=== PATIENT | female | born 1950 | race Caucasian/White ===

== ENCOUNTER 2016-10-29 05:43 | Day surgery (SDC) | payer MEDICARE, OTHER ==
[~2016-10-29] VITALS: Ht 162.6 cm; Wt 74.7 kg
[2016-10-29] VITALS (9 sets, daily range): BP systolic 109–132; BP diastolic 58–74; PULSE 64–69; RESP 11–20; O2SAT 94–100
[~2016-10-29 05:43] MED LIST: ALBU8.5H2 INHALATION; ASPI-973 PO; ATEN50TA PO; BENZ-12 PO; CYCL1DRO AFFECT_EYE; FEXO180T85 PO; FLUT9.9S NS; HYOS0.1281 SL; METF500T4 PO; OLP.1OP5 AFFECT_EYE; POLY10DR3 AFFECT_EYE; TRIA1CAP5 PO; VALA500T2 PO
[2016-10-29] MEDS ORDERED: Succinylcholine Chloride 20 mg/mL 5 mL Inj ONE (05:44)
[2016-10-29] MEDS ORDERED: EPHEDrine/NS 5 mg/mL 5 mL Syringe ONE (05:44)
[2016-10-29] MEDS ORDERED: Phenylephrine 10,000 mCg/mL Inj ONE (05:44)
[2016-10-29] MEDS ORDERED: Ondansetron 2 mg/mL 2 mL Inj ONE (05:44)
[2016-10-29] MEDS ORDERED: fentaNYL-PF 50 mCg/mL 2 mL Inj ONE (05:44)
[2016-10-29] MEDS ORDERED: Lidocaine PF 1% 30 mL Inj ONE (05:44)
[2016-10-29] MEDS ORDERED: Dexamethasone 4 mg/mL Inj ONE (05:44)
[2016-10-29] MEDS ORDERED: Phenylephrine/NS 100 mCg/mL 10 mL Syringe IVPUSH ONE (05:44)
[2016-10-29] MEDS ORDERED: Propofol 10,000 mCg/mL 20 mL Inj ONE (05:44)
[2016-10-29] MEDS ORDERED: Clindamycin Inj 600 MG in IV Premix 1 EACH IV ONE (06:00)
[2016-10-29] MEDS: Lactated Ringer's 1,000 ML IV SCH ×2 (06:22→07:15)
[2016-10-29] MEDS ORDERED: Labetalol 5 mg/mL 4 mL Inj IV PRN (07:00)
[2016-10-29] MEDS ORDERED: Ondansetron 2 mg/mL 2 mL Inj IVPUSH PRN (07:00)
[2016-10-29] MEDS ORDERED: EPHEDrine Sulfate 50 mg/mL Inj IVPUSH PRN (07:00)
[2016-10-29] MEDS ORDERED: hydrALAZINE 20 mg/mL Inj IVPUSH PRN (07:00)
[2016-10-29] MEDS ORDERED: MetoCLOpramide 5 mg/mL 2 mL Inj IVPUSH PRN (07:00)
[2016-10-29] MEDS ORDERED: Dexamethasone 4 mg/mL Inj IVPUSH PRN (07:00)
[2016-10-29] MEDS ORDERED: fentaNYL-PF 50 mCg/mL 2 mL Inj IVPUSH PRN (07:00)
[2016-10-29] MEDS ORDERED: Lactated Ringer's 500 ML IV PRN (07:00)
[2016-10-29] MEDS ORDERED: Atropine 0.4 mg/mL Inj IVPUSH PRN (07:00)
[2016-10-29] MEDS ORDERED: HYDROmorphone 1 mg/mL Inj IVPUSH PRN (07:00)
[2016-10-29] MEDS ORDERED: Lactated Ringer's 1,000 ML IV SCH (07:00)
[2016-10-29] MEDS ORDERED: Phenylephrine 10,000 mCg/mL Inj IVPUSH PRN (07:00)
--- NOTE | 2016-10-29 07:00 | PCM.HPANE ---
Patient Data Date of Service: Oct 29, 2016 Surgeon Admitting Provider: Attending Provider:Evaristo Chang MD Primary Care Physician:Raheel Fermin MD Other Provider:Suzette Luna Anesthesia Reason for Visit Left Inguinal Hernia Ht/WT & BMI Height (Feet): 5 Height (Inches): 4 Weight (Kilograms): 74.7 Body Mass Index 28.00 Allergies Coded Allergies: Penicillins (Verified Allergy, Severe, RASH, HIVES, 10/27/16) Sulfa (Sulfonamide Antibiotics) (Verified Adverse Reaction, Severe, N&V, ) lisinopril (Verified Adverse Reaction, Severe, COUGH, 10/27/16) Past Anesthesia History Anesthesia History: Denies:: Anesthesia Reactions, Malignant Hyperthermia Diabetes History Hx Diabetes?: Yes Type of Diabetes: Type II Glycemic Control: Oral Medication Current Bedside Blood Glucose: 139 MRSA MRSA: No Medications Blood Thinner: Aspirin Hypertension Medication: Yes (TRIAMTERENE/HCTZ) Home Meds Incl Beta Seth: Yes Date Beta Seth Taken: Oct 29, 2016 Time Beta Seth Taken: 414 Reported Medications Aspirin 81 Mg [id number] Mg PO DAILY Ref 0 10/27/16 Valacyclovir HCl (Valtrex)500 Mg [id number] Mg PO BID PRN PRN 30 Days X 3 DAYS 10/27/16 Triamterene/HCTZ 37.5-25 mg 1 Each Capsule0.5 Capsule PO DAILY Ref 0 10/27/16 Benzonatate (Tessalon Perle)100 Mg [id number] Mg PO TID PRN For Cough 10/27/16 Cyclosporine (Restasis)1 Each Droperette2 Each AFFECT_EYE BID 10/27/16 Olopatadine (Patanol)5 Ml Soln1-2 Gtts AFFECT_EYE BID 10/27/16 Metformin 500 Mg [id number] Mg PO BID Ref 0 10/27/16 Hyoscyamine SL (Levsin SL)0.125 Mg Tab.subl0.125 Mg SL Q6H PRN PRN 10/27/16 Fluticasone Propionate (Flonase Allergy Relief)50 Mcg/Actuation [place].susp9.9 Ml NS DAILY 10/27/16 Atenolol 50 Mg Vvtbti27 Mg PO DAILY #30 TABLET Ref 0 10/27/16 Fexofenadine ([place]ida Allergy)180 Mg Odwzdf126 Mg PO DAILY PRN PRN Ref 0 10/27/16 Albuterol HFA (Proair HFA)8.5 Gm Hfa.aer.ad2 Puffs INHALATION Q4H PRN PRN #1 INHALER 10/27/16 Discontinued Reported Medications Polymyxin B Sulf/Trimethoprim (Polymyxin B-Tmp Eye Drops)10 Ml Drops1-2 Gtts AFFECT_EYE Q6H 10/27/16 History History of ENT Problems?: Yes HEENT History: Positive for:: Cataracts Sinus Problem (ENVIRONMENTAL ALLERGIES) Denture Type: None Teeth Condition: Within Normal Limits Hx of Heart Problems?: Yes Cardiovascular History: Positive for:: Hypertension (HYPERLIPIDEMIA) Denies:: Heart Murmur Hx of Respiratory Problem?: Yes Respiratory History: Positive for:: Asthma (seasonal) Use of Inhalers / NEBS Denies:: Chest Surgery (HX PULMONARY NODULE) Use of C-PAP Machine Hx Neurologic Problems?: Yes Other Neurological Pertinent: HX HSV Hx of GI Problems?: Yes Gastrointestinal History: Positive for:: Gastroesphageal Reflux Other GI Pertinent History: LT INGUINAL HERNIA=CURRENT PROBLEM Hx of Problems?: No Female Hx: Positive for:: Problems with Breasts? (S/P LT SUBAREOLAR DUCT EXCISION) Denies:: Currently Skin History: Denies:: History Skin Disorders? Pressure Ulcers Hx Musculoskeletal Problems?: Yes Musculoskeletal History: Positive for:: Musculoskeletal Trauma (C/OF LT KNEE PAIN S/P RT TOE RPR,RT KNEE SCOPE) Hx of Psycho/Social Problems?: No Hx Surgeries?: Yes (MAN,RT TOE RPR,RT KNEE SCOPE) Hx Any Other Health Problems?: Yes Other History: Denies:: Cancer Endocrine Disease Hospitalization Thyroid Disease Hx Diabetes: YesBedside Blood Glucose: 139 Hx Alcohol Use: Yes (RARELY)Hx Substance Use: No Smoking Status: Never Smoker Have You Smoked inLast 12 mo: No Stop/Bang Treated for Sleep Apnea?: No Do You Have a CPAP Machine?: No S-Snoring: Do You Snore Loudly: No T-Tired: feel tired, fatigued: No O-Obsered: Observed not breath: No P-Blood Pressure: treated: Yes B- Body Mass Index > 35 kg/m2: No A- Age over 50: Yes N- Neck Large Circumference: No G- Gender Male: No MAURO Total Score: 2 MAURO Risk Assessment: Low Risk, <3 Yes Risk Assessment Category Category 1A: Patient has history of documented sleep apnea, and HAS NOT received any narcotic, sedative or anesthesia administration during this stay. Category 1B: Patient has history of documented sleep apnea, and HAS received any narcotic , sedative or anesthesia administration during this stay Category 2: Patient has SUSPECTED Obstructive Sleep Apnea, and HAS received any narcotic , sedative or anesthesia administration during this stay. Category 3: Patient has SUSPECTED Obstructive Sleep Apnea and HAS NOT received narcotic, sedative or anesthesia administration during this stay. Category 4: Outpatient in Procedural Areas with known sleep apnea or who screen positive for High Risk via the STOP/BANG questionnaire. Exam Exam Vital Signs Vital Signs Date Time Temp Pulse Resp B/P Pulse Ox O2 Delivery O2 Flow Rate FiO2 10/29/16 06:04 36.3 64 20 129/74 97 Room Air General Appearance: Alert, Oriented X3, Cooperative HEENT/AIRWAY: MP 2, Neck Movement (Full), Mouth Opening (Wide) Lungs: Clear to Auscultation, Normal Air Movement Heart: Regular Rate/Rhythm, Normal S1, Normal S2 Meds/Labs/Diagnostics Admission Meds Current Medications Lactated Ringer's (Lr) 1,000 ml @ 120 mls/hr Q8H20M IV Last administered on t 06:22; Start 10/29/16 at 05:00; Stop 10/29/16 at 13:19 Bedside Blood Glucose: 139 Plan Impression Patient chart reviewed, patient interviewed and anesthestic plan with risks, benefits, and alternatives discussed, and informed consent obtained. NPO per Anesth. Guidelines: Yes ASA Physical Status: ASA2 Mod Systemic Disease Anesthetic Plan: GA Bene/Risks/Altern/Consents: Yes HP Complete Prior to Induction: Yes Ifeanyi Benitez MD Oct 29, 2016 06:54
[2016-10-29] MEDS ORDERED: Bupivacaine-MPF 0.25% 30 mL Inj INFILTRATE ONE (07:15)
[2016-10-29] MEDS ORDERED: oxyCODONE-Acetamin 5-325 mg Tablet PO PRN (08:10)
[2016-10-29] MEDS ORDERED: HYDROcodone-APAP 5-325 mg Tablet PO PRN (08:10)
--- NOTE | 2016-10-29 08:58 | PCM.ANEP1 ---
Post Anesthesia PACU Phase 1 Assessment Date of Service: Oct 29, 2016 Vital Signs Vital Signs Date Time Temp Pulse Resp B/P Pulse Ox O2 Delivery O2 Flow Rate FiO2 10/29/16 08:41 67 16 118/60 96 Room Air 10/29/16 08:35 36.4 66 11 109/59 95 Room Air 10/29/16 08:30 66 12 117/62 95 Room Air 10/29/16 08:25 36.5 69 14 115/58 94 Room Air 10/29/16 08:20 69 17 111/61 96 Room Air 10/29/16 08:15 65 15 112/62 100 Room Air 10/29/16 08:10 69 15 121/61 100 Simple Mask 8 10/29/16 08:05 36.7 66 15 132/68 100 Simple Mask 8 10/29/16 06:04 36.3 64 20 129/74 97 Room Air Anesthetic Administered: GA Level of Alertness: Awake, talking FAN's with Equal Strength: Yes Pain: No Nausea or Vomiting: No CV Function & Hydration Stable: Yes Airway Device: Oxygen Delivery: Room Air Lungs: Normal Air Movement PACU Phase 2 Assessment Complications: No Follow up Care: No Patient Instructions Provided: N/A Ifeanyi Benitez MD Oct 29, 2016 08:58
--- NOTE | 2016-10-29 09:14 | OP ---
[address] [address] OPERATIVE REPORT PATIENT: BUSTER JACKSON : 1950 MR#: [id number] ADMIT: 10/29/2016 JOB ID: [id number] DATE OF SURGERY: 10/29/2016 ANESTHESIA: General. PREOPERATIVE DIAGNOSIS(ES): Symptomatic left inguinal hernia. POSTOPERATIVE DIAGNOSIS(ES): Symptomatic left inguinal hernia (indirect). OPERATION: Open repair of left inguinal hernia using mesh. SURGEON: Dr. Evaristo Chang. ASSISTANTS: Beni Batista PA-C (the child welfare assistant was required for the safe and timely completion of the case). COMPLICATIONS: None. ESTIMATED BLOOD LOSS: Less than 5 mL. CONDITION: Satisfactory. SPECIMEN: None. FINDINGS: There was a large lipoma associated with the small indirect hernia. This was repaired with soft polypropylene mesh. INDICATIONS/SIGNIFICANT HISTORY: The patient is a 66-year-old female who developed a left groin lump two months ago. This has slowly increased in size and has become increasingly uncomfortable. She was referred to me, diagnosed with an inguinal hernia, and elected to undergo repair. OPERATIVE TECHNIQUE: The patient was taken to the operating room and placed in the supine position. General anesthesia was administered and perioperative antibiotics given. The groin and abdomen were prepped and draped in a standard surgical fashion and a procedural pause performed. I began by anesthetizing the area. The left inguinal incision was made and dissection carried down through skin and subcutaneous tissue. The aponeurosis of the external oblique was opened in line with the fibers to reveal the contents of the inguinal canal. I dissected around the round ligament and then isolated a large cord lipoma and small hernia and reduced both knees back into the abdomen. I then suture ligated the round ligament and transected this and removed this from the inguinal canal. The piece of soft polypropylene mesh was then trimmed to the appropriate size and secured in place with interrupted 2-0 PDS sutures. The result was a nice reinforcement of the floor with closure of the internal ring. The aponeurosis of the external oblique was then closed with a running 3-0 Vicryl. Skin was closed using 4-0 Monocryl. Dermabond was applied. The entire procedure was well tolerated without complication.
== END 2016-10-29 23:59 | disposition home or self-care (01) ==
LOC: SAS 05:43
PROVIDERS: ATTEND General Practice
DX: K40.90 Unilateral inguinal hernia, without obstruction or gangrene, not specified as recurrent (principal); D17.79 Benign lipomatous neoplasm of other sites; E11.9 Type 2 diabetes mellitus without complications; Z79.84 Long term (current) use of oral hypoglycemic drugs; I10 Essential (primary) hypertension; J45.909 Unspecified asthma, uncomplicated; Z79.52 Long term (current) use of systemic steroids
CPT/HCPCS: 49505; C1781; J0330; J1100; J2250; J2370; J2405; J3010; J7120

== ENCOUNTER 2016-12-16 09:54 | Observation (INO) | payer MEDICARE, OTHER ==
[~2016-12-16] VITALS: Ht 162.6 cm; Wt 71.6 kg
[~2016-12-16 09:54] MED LIST changes: -CYCL1DRO AFFECT_EYE; +CYCL1DRO BOTH_EYES; -POLY10DR3 AFFECT_EYE
[2016-12-16 09:56] VITALS: BP 149/88; PULSE 74; RESP 14; O2SAT 98
--- NOTE | 2016-12-16 10:20 | ED.REPORT ---
HPI-General Illness Date of Service Dec 16, 2016 ED Provider: Vasu Roper MD Patient is a 66-year-old woman with diabetes mellitus, hypertension, and acid reflux who presents to the emergency department with sudden onset deep throbbing , aching right arm pain. It is not exacerbated by movement or manipulation though she did pull herself out of the bathtub yesterday which is straining on her arm due to a wrapped right foot and compromised left knee. Early this morning patient began feeling unwell and has noticed some occasional shortness of breath with exertion recently. She will have an occasional twinge of chest pain however nothing that is reproducible, recurring, or consistent. She does have swelling of her feet in the evenings left worse than right. She wears compression stockings and does not Epsom salts bath nightly. She previously walked 3-5 miles per day however has developed left Chadwick's cyst, and torn meniscus in her left knee and plantar fasciitis which is making walking more difficult for her. She took 4 baby aspirin prior to arrival. Patient denies headache, recent vision changes, nausea, vomiting, abdominal pain, dysuria, abnormal bowel movements, melena, hematochezia Nursing Notes Stated Complaint: ARM PAIN Chief Complaint: arm pain Nursing Notes Reviewed: Yes Allergies: Coded Allergies: Penicillins (Verified Allergy, Severe, RASH, HIVES, 10/27/16) oxycodone (Verified Allergy, Severe, red face, facial swelling, 11/02/16) Sulfa (Sulfonamide Antibiotics) (Verified Adverse Reaction, Severe, N&V, ) lisinopril (Verified Adverse Reaction, Severe, COUGH, 10/27/16) Scheduled Aspirin (Aspirin) 81 Mg Tablet 81 MG PO DAILY Atenolol (Atenolol) 25 Mg Tablet 25 MG PO QAM Cyclosporine (Restasis) 1 Each Droperette 1 DROP BOTH_EYES BID Metformin (Metformin) 500 Mg Tablet 500 MG PO QAM Omeprazole (Omeprazole) 20 Mg Tablet.dr 20 MG PO BID Triamterene/HCTZ 37.5-25 mg (Triamterene/HCTZ 37.5-25 mg) 1 Each Capsule 0.5 CAPSULE PO DAILY Scheduled PRN Albuterol HFA (Proair HFA) 8.5 Gm Hfa.aer.ad 2 PUFFS INHALATION Q4H PRN PRN PRN Benzonatate (Tessalon Perle) 100 Mg Capsule 100 MG PO TID PRN PRN For Cough Fluticasone Propionate (Flonase Allergy Relief) 50 Mcg/Actuation [place].susp 1-2 SPRAYS NS DAILY PRN PRN For Congestion Valacyclovir HCl (Valtrex) 500 Mg Tablet 500 MG PO BID PRN PRN PRN X 3 DAYS General Time Seen by MD: 10:09 Chief Complaint Other (arm pain) Hx Obtained From: Patient Arrived By: Walk-in Sudden in Onset?: Yes Onset Occurred: Yesterday Past Medical History Past Medical History Diabetes mellitus type II on metformin Hypertension GERD Left knee Chadwick's cyst and torn medial and lateral meniscus Cataracts Plantar fasciitis Past Surgical History Cholecystectomy Left knee arthroscopy Right great toe surgery Left inguinal hernia repair 2 months ago Family History Father with CHF and strokes Sr. with SVT Family history of hypertension Smoking History Never Smoker Social History Alcohol Use: "Social" Drug Use: Denies drug use Other Social History: Ambulatory Status Independent Review of Systems A comprehensive review of systems was conducted with the patient and found to be negative except as above in the History of Present Illness. Physical Exam Initial VS: Reviewed, Vital signs normal (mildly hypertensive) General/Constitutional: Well-developed, Well-nourished Head / Eyes: Atraumatic, Normocephalic, PERRL ENT: Mucous membranes moist, Conjunctiva normal, No scleral icterus Neck: Supple, Non-tender, Full range of motion Respiratory: Breath sounds normal, Clear to auscultation, No respiratory distress Cardiovascular: Regular rate & rhythm, Heart sounds normal, Intact distal pulses Abdomen / GI: Soft, Non-tender, No guarding, No rebound, No distention Back: No CVA tenderness Lymphatic: No lymphadenopathy Lower Extremities: Vascular intact, Neuro intact, No swelling, No tenderness Skin: Warm, Dry, No cyanosis Neurologic: Alert, Oriented, Nonfocal Psychiatric: Mood/affect normal, Behavior normal, Normal thought content Upper Extremity / MS: Atraumatic, Inspection NL, Full range of motion, No swelling, Non-tender (to palpation), No erythema, No deformity, No edema Vital Signs Vital Signs Date Time Temp Pulse Resp B/P Pulse Ox O2 Delivery O2 Flow Rate FiO2 12/16/16 11:44 36.8 60 17 121/59 99 Room Air 12/16/16 09:56 36.7 74 14 149/88 98 Room Air Interpretation & Diagnostics Ultrasound of right upper extremity negative for deep vein thrombosis. Lab Results Interpretation Result Diagram: 12/16/16 1045 12/16/16 1045 Test 12/16/16 10:45 White Blood Count 6.0th/mm3 (3.8-10.1) Red Blood Count 4.31mil/mm3 (3.90-5.20) Hemoglobin 13.0g/dL (12.0-15.6) Hematocrit 39.0% (35.0-46.0) Mean Corpuscular Volume 90.5fL (81-100) Mean Corpuscular Hemoglobin 30.2pg (27.0-35.0) Mean Corpuscular Hemoglobin Concent 33.3% (32.0-37.0) Red Cell Distribution Width 13.1% (12.3-15.4) Platelet Count 267bil/L (150-400) Neutrophils (%) (Auto) 62.5% (40-74) Lymphocytes (%) (Auto) 22.1% (14-46) Monocytes (%) (Auto) 13.2% (4-12) Eosinophils (%) (Auto) 1.7% (0-5) Basophils (%) (Auto) 0.3% (0-3) Sodium Level 140mEq/L (134-144) Potassium Level 3.6mEq/L (3.5-5.2) Chloride Level 102mEq/L (97-108) Carbon Dioxide Level 24mmol/L (18-29) Blood Urea Nitrogen 21mg/dL (8-27) Creatinine 0.84mg/dL (0.57-1.00) Estimat Glomerular Filtration Rate 97mL/min (>59) Glucose Level 131mg/dL (60-99) Calcium Level 10.1mg/dL (8.5-10.1) Total Bilirubin 1.1mg/dL (0.0-1.2) Aspartate Amino Transf (AST/SGOT) 22U/L (0-50) Alanine Aminotransferase (ALT/SGPT) 22U/L (0-32) Alkaline Phosphatase 61U/L (25-165) Troponin T 0.010ug/L (0.0-0.011) Total Protein 7.2g/dL (6.4-8.4) Albumin 4.1g/dL (3.4-5.0) Hold Keller Top Tube Received (Received) ECG Interpretation ECG Interpretation: Sinus rhythm at a rate of 67 T waves inverted in III No previous for comparison Time: 10:13 Interpreted by: ED physician X-Ray Chest Interpretation Chest Xray Interpretation: No acute cardiopulmonary process View: AP & lat Interpretation / Wet Read by: Interpret - Radiologist Re-Eval/Medical Decision Med Decision/Clinical Course Patient is a 66-year-old woman with diabetes mellitus, hypertension, and acid reflux who presents to the emergency department with sudden onset deep throbbing , aching right arm pain. There is some concern about arm injury or strain while patient was precariously getting herself out of the bathtub yesterday evening. On exam she has no gross limitation in range of motion, no pain with movement, and no pain to palpation, or swelling. Right upper extremity ultrasound was ordered to rule out formation of DVT. This was negative. She has a HEART score of 5 making her moderate risk for acute cardiovascular event. I Wells criteria she is low risk for pulmonary embolism or DVT. Though she is not having typical chest pain she has not had a cardiac stress test in the last 10 years and her risk factors are quite high due to diabetes, hypertension , obesity, and family history of cerebral vascular disease. Time of Eval: 13:05 Patient Status: Condition unchanged Counseled Regarding: Diagnosis, Lab results, Need for admission Discharge & Departure Primary Impression: Dyspnea on exertion Additional Impressions: Arm pain Laterality: right Qualified Code: M79.601 - Pain in right arm Diabetes mellitus Diabetes mellitus type: type 2 Diabetes mellitus complication status: without complication Diabetes mellitus assisted insulin use: without online banking specialist use Qualified Code: E11.9 - Type 2 diabetes mellitus without complications Disposition: ADMITTED TO HOSPITAL Discharge Condition All VS Reviewed: Yes Condition: Stable Referrals: Raheel Fermin MD (PCP) Attending Statement I saw the patient with the resident. I have reviewed and agree with the plan and documentation as noted above. copies to: Raheel Fermin MD, William B MD Dec 16, 2016 10:20 Nancy Dowell DO Dec 16, 2016 12:48
[2016-12-16 10:57] LABS: Mean Corpuscular Hemoglobin 30.2 pg (27.0-35.0); Mean Corpuscular Volume 90.5 fL (81-100); NEUTROPHILS % (AUTO) 62.5 % (40-74); Platelet Count 267 bil/L (150-400)
[2016-12-16 10:58] LABS: BASOPHILS % (AUTO) 0.3 % (0-3); EOSINOPHILS % (AUTO) 1.7 % (0-5); MONOCYTES % (AUTO) 13.2 % (4-12)
--- NOTE | 2016-12-16 10:58 | ED.REPORT ---
HPI-Extremity Problem Upper Date of Service Dec 16, 2016 ED Provider: Vasu Roper MD Patient is a 66-year-old woman with diabetes mellitus, hypertension, and acid reflux who presents to the emergency department with sudden onset deep throbbing , aching right arm pain. It is not exacerbated by movement or manipulation though she did pull herself out of the bathtub yesterday which is straining on her arm due to a wrapped right foot and compromised left knee. Early this morning patient began feeling unwell and has noticed some occasional shortness of breath with exertion recently. She will have an occasional twinge of chest pain however nothing that is reproducible, recurring, or consistent. She does have swelling of her feet in the evenings left worse than right. She wears compression stockings and does not Epsom salts bath nightly. She previously walked 3-5 miles per day however has developed left Chadwick's cyst, and torn meniscus in her left knee and plantar fasciitis which is making walking more difficult for her. She took 4 baby aspirin prior to arrival. Patient denies headache, recent vision changes, nausea, vomiting, abdominal pain, dysuria, abnormal bowel movements, melena, hematochezia Nursing Notes Stated Complaint: ARM PAIN Chief Complaint: Arm Pain Nursing Notes Reviewed: Yes Allergies: Coded Allergies: Penicillins (Verified Allergy, Severe, RASH, HIVES, 10/27/16) oxycodone (Verified Allergy, Severe, red face, facial swelling, 11/02/16) Sulfa (Sulfonamide Antibiotics) (Verified Adverse Reaction, Severe, N&V, ) lisinopril (Verified Adverse Reaction, Severe, COUGH, 10/27/16) Scheduled Aspirin (Aspirin) 81 Mg Tablet 81 MG PO DAILY Atenolol (Atenolol) 25 Mg Tablet 25 MG PO QAM Cyclosporine (Restasis) 1 Each Droperette 1 DROP BOTH_EYES BID Metformin (Metformin) 500 Mg Tablet 500 MG PO QAM Omeprazole (Omeprazole) 20 Mg Tablet.dr 20 MG PO BID Triamterene/HCTZ 37.5-25 mg (Triamterene/HCTZ 37.5-25 mg) 1 Each Capsule 0.5 CAPSULE PO DAILY Scheduled PRN Albuterol HFA (Proair HFA) 8.5 Gm Hfa.aer.ad 2 PUFFS INHALATION Q4H PRN PRN PRN Benzonatate (Tessalon Perle) 100 Mg Capsule 100 MG PO TID PRN PRN For Cough Fluticasone Propionate (Flonase Allergy Relief) 50 Mcg/Actuation [place].susp 1-2 SPRAYS NS DAILY PRN PRN For Congestion Valacyclovir HCl (Valtrex) 500 Mg Tablet 500 MG PO BID PRN PRN PRN X 3 DAYS General Time Seen by MD: 10:15 Chief Complaint Arm injury right Hx Obtained From: Patient Arrived By: Walk-in Onset Occurred: Yesterday Past Medical History Past Medical History Diabetes mellitus type II on metformin Hypertension GERD Left knee Chadwick's cyst and torn medial and lateral meniscus Cataracts Plantar fasciitis Past Surgical History Cholecystectomy Left knee arthroscopy Right great toe surgery Left inguinal hernia repair 2 months ago Family History Father with CHF and strokes Sr. with SVT Family history of hypertension Smoking History Never Smoker Social History Alcohol Use: "Social" Drug Use: Denies drug use Other Social History: Ambulatory Status Independent Review of Systems A comprehensive review of systems was conducted with the patient and found to be negative except as above in the History of Present Illness. Physical Exam Initial Vital Signs Vital Signs (First) Date Time Temp Pulse Resp B/P Pulse Ox O2 Delivery O2 Flow Rate FiO2 12/16/16 09:56 36.7 74 14 149/88 98 Room Air Initial VS: Reviewed, Vital signs normal (mildly hypertensive) General/Constitutional: Well-developed, Well-nourished Head / Eyes: Atraumatic, Normocephalic, PERRL ENT: Mucous membranes moist, Conjunctiva normal, No scleral icterus Neck: Supple, Non-tender, Full range of motion Respiratory: Breath sounds normal, Clear to auscultation, No respiratory distress Cardiovascular: Regular rate & rhythm, Heart sounds normal, Intact distal pulses Abdomen / GI: Soft, Non-tender, No guarding, No rebound, No distention Back: No CVA tenderness Lymphatic: No lymphadenopathy Lower Extremities: Vascular intact, Neuro intact, No swelling, No tenderness Skin: Warm, Dry, No cyanosis Neurologic: Alert, Oriented, Nonfocal Psychiatric: Mood/affect normal, Behavior normal, Normal thought content Upper Extremity / MS: Atraumatic, Inspection NL, Full range of motion, No swelling, Non-tender (to palpation), No erythema, No deformity, No edema Interpretation & Diagnostics Lab Results Interpretation Result Diagram: 12/17/16 0511 12/17/16 0511 Test 12/16/16 01:30 12/16/16 10:45 Hemoglobin A1c 5.8% (4.8-5.6) Hold Keller Top Tube Received (Received) ECG Interpretation ECG Interpretation: Sinus rhythm at a rate of 67 T waves inverted in III Time: 10:13 Interpreted by: ED physician Discharge & Departure Referrals: Raheel Fermin MD (PCP) Nancy Dowell DO Dec 16, 2016 10:10
[2016-12-16 11:19] LABS: TROPONIN T 0.01 ug/L (0.0-0.011)
[2016-12-16 11:44] VITALS: BP 121/59; PULSE 60; RESP 17; O2SAT 99
--- NOTE | 2016-12-16 11:46 | DRSVH ---
PROCEDURE: X-RAY CHEST, TWO VIEWS ([id number]) INDICATIONS: Arm pain TECHNIQUE: 2 views of the chest were acquired. COMPARISON: [facility], CR, CHEST 2VW, 07/20/2011, 21:51. FINDINGS: Surgical changes and devices: None. Lungs and pleura: No pleural effusions or pneumothorax. Lungs are clear. Mediastinum: Mediastinal contours are normal. Heart size is normal. Bones and chest wall: No suspicious bony abnormalities. Soft tissues appear unremarkable. IMPRESSION: No acute cardiopulmonary disease. Dictated by: Sanam Marks M.D. on 12/16/2016 at 11:44 Approved by: Sanam Marks M.D. on 12/16/2016 at 11:44
[2016-12-16] MEDS ORDERED: OMEP20TA86 PO (13:40)
[2016-12-16] MEDS ORDERED: ATEN25TA PO (13:40)
--- NOTE | 2016-12-16 14:34 | DRSVH ---
PROCEDURE: US VENOUS ARM DUPLEX UNILATERAL, RIGHT INDICATIONS: R arm deep ache TECHNIQUE: Real-time imaging, as well as color and pulse Doppler interrogation, was performed of the right upper extremity deep veins from the inferior neck to the antecubital fossa. COMPARISON: None. FINDINGS: The internal jugular vein, visualized portions of the subclavian vein, axillary, and brach ial veins are free of intraluminal thrombus. Where physically possible, the veins are normally compr essible. Color and pulse Doppler demonstrate normal intraluminal flow, with expected phasicity and p ulsatility. Additional scanning of the cephalic and basilic veins of the superficial system demonstr ate normal compressibility, without thrombus. IMPRESSION: No acute venous thrombosis in the right upper extremity. Dictated by: Sanam Marks M.D. on 12/16/2016 at 14:32 Approved by: Sanam Marks M.D. on 12/16/2016 at 14:32
[2016-12-16 15:37] VITALS: BP 123/54; PULSE 68; RESP 16; O2SAT 98
[2016-12-16 16:18] VITALS: BP 141/85; PULSE 61; RESP 18; O2SAT 97
[2016-12-16] MEDS ORDERED: Ondansetron 2 mg/mL 2 mL Inj IVPUSH PRN (16:55)
[2016-12-16] MEDS ORDERED: Alum-Mag Hydrox-Simeth 30 mL Suspension PO PRN (16:55)
[2016-12-16] MEDS ORDERED: Polyethylene Glycol (PEG) 17 Gm Powder PO PRN (16:55)
[2016-12-16 16:56] VITALS: PULSE 60
[2016-12-16 18:26] LABS: APPEARANCE,URINE CLEAR (CLEAR,HAZY); COLOR,URINE YELLOW (YELLOW); OCCULT BLOOD,URINE NEGATIVE (NEGATIVE); PH,URINE 5.5 (5.0-8.0); UROBILINOGEN,URINE NORMAL (NORMAL)
--- NOTE | 2016-12-16 19:13 | NUR ---
Admit Patient transferred to 3015 from the ED around 1600. No c/o pain, vitals stable, ambulatory, tele: SR 70's. Family at the bedside, paged to have diet ordered, patient hadn't eaten since 1030. BG 96. Refused Lovenox. IV placed in right AC, SL. Admit completed by admit RN in ED. Oriented to room. Plan: MIBI scan in a.m., NOC RN made aware, NPO after midnight, no caffeine, Bb, etc.
[2016-12-16] MEDS: Insulin Human REGular 300 Unit/3 mL Inj SUBQ SCH (20:30)
[2016-12-16 21:36] VITALS: BP 129/71; PULSE 63; RESP 18; O2SAT 96
--- NOTE | 2016-12-16 21:51 | PCM.HPMED ---
Subjective Date of Service Dec 16, 2016 Primary Provider: Admitting Physician: Kain Castro MD Primary Care Physician: Raheel Fermin MD Attending Physician: Kain Castro MD Chief Complaint: Right arm pain History of Present Illness: The patient is a very pleasant 66-year-old white female with history of diabetes mellitus, hypertension and gastroesophageal reflux disease on omeprazole who is currently being treated for plantar fasciitis of her right lower extremity. He also suffers from a Chadwick's cyst behind the left knee along with left knee torn meniscus. Patient takes a nightly Epsom salts bath. Patient was taking a bath last evening and when she was getting out of the tub she first drained the tub and then stood up without putting much weight on her leg with a plantar fasciitis and also has a Chadwick's cyst behind her left knee. Therefore, the patient was using her arm muscles to do most of the work and getting up out of the tub. The patient felt fine afterwards however she awoke at 2:00 in the morning with a sudden onset of deep throbbing and deep aching in her right arm. 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 Soon thereafter the pain alleviated some. However, patient decided to give herself an exercise stress test instead of going to the hospital as her is sick with multiple myeloma at home. Patient decided to do jumping jacks and running in place and stated that the pain in her right arm did not get worse. However, it did not get any better. Patient eventually went back to sleep and awoke this morning feeling "horrible" she went to do her hair in her right arm was aching deep inside she could not feel any muscle aches but the pain was deep inside her arm. Patient did not experience any chills or diaphoresis or shaking. Patient did not experience any nausea, or vomiting. Her insisted that she come to the hospital and drove her to the hospital at 10 AM. The patient was evaluated in the hospital by in the emergency room at [facility] by Dr. Vasu Roper. Dr. Roper did a cardiac workup which included an EKG which shows sinus rhythm with a rate of 67 and T waves inverted in lead 3. There is no previous EKG for comparison the patient had a troponin drawn which was normal at 0.010. On exam the patient had no gross limitation range of motion, no pain with movement, no pain to palpation, no swelling. The right upper extremity ultrasound was ordered to rule out formation of a DVT and this was negative. The patient had an HEAR T score of 5 making her moderate risk for acute cardiovascular event. By Well's criteria she is low risk for pulmonary embolism or DVT. Patient had significant risk factors for cardiac disease which include diabetes, hypertension obesity and family history of cerebrovascular disease. Patient was therefore brought in under observation to the hospitalist service for further workup. Review of Systems: General: Patient has no new constitutional complaints. HEENT: Patient has no headache, patient has no diplopia, patient has no changes in vision. Patient has no problems with their ears, nose or throat. Patient has no known dental problems. Patient has no pharyngitis or history of thrush. Neck: Patient has no stiffness in the neck. Patient has no lymphadenopathy. Patient has no other problems with their neck. Pulmonary: Patient has no shortness of breath, no cough, no expectoration of sputum. Patient has no pleurisy. Patient has no chest pain. Patient has no history of asthma or COPD. Cardiovascular: Patient has no chest pain. Patient has no history of heart murmur. Patient has no palpitations. Patient has no history of myocardial infarction. Patient has no history of coronary artery disease. Patient has right arm pain and is concerned this is cardiac in origin. Gastrointestinal: Patient has no history of hepatitis A, B or C. Patient has no history of peptic ulcer disease. Patient has a history of gastroesophageal reflux disease with José's esophagus. Patient has no history of nausea, vomiting, or diarrhea. Patient has no history of hematemesis, hematochezia, or melena. Patient has no history of colitis. Renal: Patient has no history of kidney disease. No history of kidney stones. Genitourinary: Patient has no history of dysuria, frequency, or incontinence. Patient has no previous history of genitourinary problems. Musculoskeletal: Patient has plantar fasciitis on the right. She has a Chadwick's cyst in the left knee with torn menisci in the left knee. She has swelling of her left ankle at the end of the day due to the Chadwick's cyst. Neurologic: Patient has no history of stroke, no history of seizure, no history of TIA. Psychiatric: Patient has no history of psychiatric problems. The remainder of the entire review of systems was reviewed with patient and is as mentioned above otherwise negative. Allergies Coded Allergies: Penicillins (Verified Allergy, Severe, RASH, HIVES, 10/27/16) oxycodone (Verified Allergy, Severe, red face, facial swelling, 11/02/16) Sulfa (Sulfonamide Antibiotics) (Verified Adverse Reaction, Severe, N&V, ) lisinopril (Verified Adverse Reaction, Severe, COUGH, 10/27/16) Home Medications Scheduled Aspirin (Aspirin) 81 Mg Tablet 81 MG PO DAILY Atenolol (Atenolol) 25 Mg Tablet 25 MG PO QAM Cyclosporine (Restasis) 1 Each Droperette 1 DROP BOTH_EYES BID Metformin (Metformin) 500 Mg Tablet 500 MG PO QAM Omeprazole (Omeprazole) 20 Mg Tablet.dr 20 MG PO BID Triamterene/HCTZ 37.5-25 mg (Triamterene/HCTZ 37.5-25 mg) 1 Each Capsule 0.5 CAPSULE PO DAILY Scheduled PRN Albuterol HFA (Proair HFA) 8.5 Gm Hfa.aer.ad 2 PUFFS INHALATION Q4H PRN PRN PRN Benzonatate (Tessalon Perle) 100 Mg Capsule 100 MG PO TID PRN PRN For Cough Fluticasone Propionate (Flonase Allergy Relief) 50 Mcg/Actuation [place].susp 1-2 SPRAYS NS DAILY PRN PRN For Congestion Valacyclovir HCl (Valtrex) 500 Mg Tablet 500 MG PO BID PRN PRN PRN X 3 DAYS PMH Diabetes mellitus type II well controlled on metformin Hypertension GERD with José's esophagus. The patient follows with Dr. Solorio auto driver in [place]. Left knee Chadwick's cyst and torn medial and lateral meniscus Cataracts Plantar fasciitis Surgical History Cholecystectomy Left knee arthroscopy Right great toe surgery Left inguinal hernia repair 2 months ago Hollister teeth 4 removed Family History Patient's mother had hypertension, cancer liver and type I diabetes mellitus and at the age of 60. Patient's father had congestive heart failure and strokes and at the age of 80. The patient has 3 sisters who are all alive 1 has had SVT and hypertension, one has had rectal cancer treatment, one has had very bad knees. The patient has 1 brother who has hypertension Patient's had a grandfather who is had a stroke. Social History Hx Alcohol Use: Yes (RARELY) Hx Substance Use: No Hx Tobacco Use: No Smoking Status: Never Smoker Living Arrangement: with Family (the patient lives with her of 44 years.) Additional Information The patient was born in [place] and went to 13 different schools growing up as her father was in the . She went to high school in [place] [place] [employer] [facility] and graduated there. She then went to [employer] for 2 years and got an Associates degree at [employer]. She then went to [employer] for 1 year and got her bachelor's degree in nursing. 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 Currently her has multiple myeloma and had a sense ultrasound transplant and she helps take care of him at home. Patient denies tobacco use. Occasionally she will have a glass of wine maybe once per month. Vision has 4 children 2 boys and 2 girls and they are all very close. This weekend they are going to a vacation together with 19 family members in [place], [place]. Exam Vital Signs Vital Sign - Last Date Time Temp Pulse Resp B/P Pulse Ox O2 Delivery O2 Flow Rate FiO2 12/16/16 21:36 36.7 63 18 129/71 96 Room Air Exam General: The patient is in no apparent distress HEENT: Head is atraumatic and normocephalic. Eyes: Pupils are equally round and reactive to light and accommodation. Extraocular muscles are intact. Sclera are white, anicteric. Subconjunctival mucosa is pink. Ears and nose are unremarkable. Oropharynx: There is no mucosal lesions, there is no thrush, there is no pharyngitis. Neck: Is supple, there are no nodes, or masses or tenderness. Chest: Is clear to auscultation and percussion. There are no rales, rhonchi, wheezes or rubs. Heart: Rate, rhythm is regular. There is no murmur, rub or gallop. Abdomen: Good bowel sounds are present. Abdomen is soft, nontender, no organomegaly or masses were appreciated. Extremities: There is a Chadwick's cyst behind the left knee with some posterior swelling and some edema of left lower extremity towards the ankle area. The left lower extremities is well perfused. There is no Homans sign. Neurologic: There are no focal neurological deficits. Cranial nerves II through XII are intact. There are no sensory or motor deficits. Psychiatric: Patients mood is calm and shows no sign of agitation. Genital: Deferred Rectal: Deferred Lab and Diagnostics Result Diagram: 12/16/16 1045 12/16/16 1045 X-Rays, CTs and MRIs PROCEDURE: X-RAY CHEST, TWO VIEWS ([id number]) INDICATIONS: Arm pain TECHNIQUE: 2 views of the chest were acquired. COMPARISON: [facility], , CHEST 2VW, 07/20/2011, 21:51. FINDINGS: Surgical changes and devices: None. Lungs and pleura: No pleural effusions or pneumothorax. Lungs are clear. Mediastinum: Mediastinal contours are normal. Heart size is normal. Bones and chest wall: No suspicious bony abnormalities. Soft tissues appear unremarkable. IMPRESSION: No acute cardiopulmonary disease. Dictated by: Sanam Marks M.D. on 12/16/2016 at 11:44 Approved by: Sanam Marks M.D. on 12/16/2016 at 11:44 PROCEDURE: US VENOUS ARM DUPLEX UNILATERAL, RIGHT INDICATIONS: R arm deep ache TECHNIQUE: Real-time imaging, as well as color and pulse Doppler interrogation, was performed of the right upper extremity deep veins from the inferior neck to the antecubital fossa. COMPARISON: None. FINDINGS: The internal jugular vein, visualized portions of the subclavian vein , axillary, and brachial veins are free of intraluminal thrombus. Where physically possible, the veins are normally compressible. Color and pulse Doppler demonstrate normal intraluminal flow, with expected phasicity and pulsatility. Additional scanning of the cephalic and basilic veins of the superficial system demonstrate normal compressibility, without thrombus. IMPRESSION: No acute venous thrombosis in the right upper extremity. Dictated by: Sanam Marks M.D. on 12/16/2016 at 14:32 Approved by: Sanam Marks M.D. on 12/16/2016 at 14:32 Assessment & Plan The patient is a very pleasant 66-year-old white female with history of diabetes mellitus, hypertension and gastroesophageal reflux disease on omeprazole who is currently being treated for plantar fasciitis of her right lower extremity. He also suffers from a Chadwick's cyst behind the left knee along with left knee torn meniscus. Patient takes a nightly Epsom salts bath. Patient was taking a bath last evening and when she was getting out of the tub she first drained the tub and then stood up without putting much weight on her leg with a plantar fasciitis and also has a Chadwick's cyst behind her left knee. Therefore, the patient was using her arm muscles to do most of the work and getting up out of the tub. The patient felt fine afterwards however she awoke at 2:00 in the morning with a sudden onset of deep throbbing and deep aching in her right arm. 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 Soon thereafter the pain alleviated some. However, patient decided to give herself an exercise stress test instead of going to the hospital as her is sick with multiple myeloma at home. Patient decided to do jumping jacks and running in place and stated that the pain in her right arm did not get worse. However, it did not get any better. Patient eventually went back to sleep and awoke this morning feeling "horrible" she went to do her hair in her right arm was aching deep inside she could not feel any muscle aches but the pain was deep inside her arm. Patient did not experience any chills or diaphoresis or shaking. Patient did not experience any nausea, or vomiting. Her insisted that she come to the hospital and drove her to the hospital at 10 AM. The patient was evaluated in the hospital by in the emergency room at [facility] by Dr. Vasu Roper. Dr. Roper did a cardiac workup which included an EKG which shows sinus rhythm with a rate of 67 and T waves inverted in lead 3. There is no previous EKG for comparison the patient had a troponin drawn which was normal at 0.010. On exam the patient had no gross limitation range of motion, no pain with movement, no pain to palpation, no swelling. The right upper extremity ultrasound was ordered to rule out formation of a DVT and this was negative. The patient had an HEAR T score of 5 making her moderate risk for acute cardiovascular event. By Well's criteria she is low risk for pulmonary embolism or DVT. Patient had significant risk factors for cardiac disease which include diabetes, hypertension obesity and family history of cerebrovascular disease. Patient was therefore brought in under observation to the hospitalist service for further workup. # Right arm pain, present on admission. Active - Rule out acute coronary syndrome - Rule out other - Check serial troponins - Check echocardiogram - As patient has plantar fasciitis on the right foot, a Chadwick's cyst behind the left knee, along with torn cartilage in the left knee, will order a nuclear medicine stress test for the patient in a.m. # Type II diabetes, present on admission. Active - Patient reports that this is well controlled on metformin. - We will check hemoglobin A1c- we will check blood sugars before meals and at bedtime and offer sliding scale insulin coverage - We will place on a heart healthy consistent carbohydrate diet. # Hypertension, present on admission. Active - We will continue patient's atenolol 25 mg daily - We will continue triamterene/hydrochlorothiazide 30 7. 525 milligrams by mouth daily # Chadwick's cyst behind the left knee along with torn medial meniscus of the knee and left leg swelling. - Due to the above and plantar fasciitis or order nuclear medicine stress test or Lexiscan, rather than a treadmill stress test. Disposition: If the stress test is negative I suspect patient may have injured herself getting out of the tub and she will be discharged home. However, if stress test is indicative of cord acute coronary syndrome cardiology will be consulted. Pain Evaluation: Adequate Pain Control GI Prophylaxis: Proton Pump Inhibitor VTE Prophylaxis: Sub-Q Enoxaparin Resuscitation Status: CPR: Attempt Resuscitation Kain Castro MD Dec 16, 2016 21:51
[2016-12-17] VITALS: BP 112/85; PULSE 57; RESP 18; O2SAT 97
[2016-12-17] MEDS: Sodium Chloride LOK Flush 10 mL Syringe IVFLUSH SCH ×2 (00:30→10:24)
[2016-12-17] MEDS: Insulin Human REGular 300 Unit/3 mL Inj SUBQ SCH ×3 (02:30→11:42)
[2016-12-17 04:27] VITALS: BP 103/63; PULSE 59; RESP 16; O2SAT 98
[2016-12-17 05:47] VITALS: PULSE 67
[2016-12-17 06:21] LABS: BASOPHILS % (AUTO) 0.3 % (0-3); EOSINOPHILS % (AUTO) 1.7 % (0-5); MONOCYTES % (AUTO) 13.3 % (4-12); Mean Corpuscular Hemoglobin 30.4 pg (27.0-35.0); NEUTROPHILS % (AUTO) 60.8 % (40-74); Platelet Count 240 bil/L (150-400)
[2016-12-17 06:39] LABS: Magnesium 2.1 mg/dL (1.6-2.6)
[2016-12-17 07:27] VITALS: PULSE 69
[2016-12-17 10:18] VITALS: BP 119/66; PULSE 74; RESP 16; O2SAT 96
--- NOTE | 2016-12-17 11:23 | NUR ---
Case Management: VERNON and Medicare Part D pamphlet delivered and explained to pt. Signed original placed in chart. Copy left at bedside. Jcaquelyn Bishop RN
--- NOTE | 2016-12-17 11:42 | NUR ---
Social Work: Initial Assessment / Multidisciplinary Rounds / Readiness for d/c Data: Pt is a 66 y/o female admitted for CP R/O. Pt's PCP is Dr Fermin, pt's insurance is Medicare with [place]. EMR reviewed. Readmit score not listed. Pt discussed in rounds, MD states pt likely to d/c today pending results of stress test today. CLINICAL REHABILITATION LIAISON met with pt at bedside, role explained. Pt states she lives in [place] with her in a two story home where she uses no DME. Pt drives, has no hx of HH or SNF, no LTC or VA benefits, and is not a caregiver. Pt's spouse plans to drive her home at d/c. No d/c planning needs identified at this time. CLINICAL REHABILITATION LIAISON will continue to follow if needs arise. Assessment: Pt who is independent at baseline, capable of self care at this time. Plan: Pt will d/c home via POV, possibly today pending results of stress test per MD, via POV with spouse. No d/c planning needs identified at this time. CLINICAL REHABILITATION LIAISON will continue to follow if needs arise. EMELINA Johnson Addendum: 12/17/16 at 1145 by DILLAN AVILA Amended: Links added.
--- NOTE | 2016-12-17 11:44 | DRSVH ---
[facility] [address] [place] [address] Echocardiogram Report Name: BUSTER JACKSON MStudy Date : 12/17/2016 Height: 64 in Hospital Exam Location: [facility] Weight: 158 lb Gender: Female BSA: 1.8 m2 : 1950 Age: 66 yrs BP: 103/63 mmHg Reason For Study: Right arm pain, possible ischemia Ordering Physician: RONI [facility] Performed By: Joselin Tse Referring Physician: Waqar Lopez Interpretation Summary There is normal left ventricular wall thickness. The ejection fraction is estimated to be 60-65%. There is no significant valvular heart disease. Procedure: A two-dimensional transthoracic echocardiogram with color flow and Doppler was performed. The study quality was technically adequate. There is no prior echocardiogram noted for this patient. The patient was in normal sinus rhythm during the exam. The patient had occasional PACs during the exam. Left Ventricle: The left ventricle is normal in size. There is normal left ventricular wall thickness. The ejection fraction is estimated to be 60-65%. Right Ventricle: The right ventricle is normal size. The right ventricular systolic function is normal. Atria: The left atrium is mildly dilated. The right atrium is normal in size. The interatrial septum is intact with no evidence for an atrial septal defect. Mitral Valve: The mitral valve leaflets appear borderline thickened, but open well. There is mild mitral annular calcification. There is trace mitral regurgitation. Aortic Valve: The aortic valve is trileaflet. The aortic valve opens well. The aortic valve is slightly calcified. There is trace aortic regurgitation. Tricuspid Valve: The tricuspid valve leaflets are thin and pliable. There is trace tricuspid regurgitation. The right ventricular systolic pressure is estimated at 23 mmHg assuming a right atrial pressure of 3 mm Hg. Pulmonic Valve: The pulmonic valve is not well seen, but is grossly normal. There is trace pulmonic regurgitation. Great Vessels: The aortic root is normal size. The ascending aorta could not be visualized. The IVC is of normal diameter and collapses greater than 50% with a sniff. This suggests a low right atrial pressure of 3 mm Hg. Pericardium/ Pleura There is no pericardial effusion. There is an anterior echo-free space consistent with a fat pad. There is no pleural effusion. MMode/2D Measurements & Calculations LVIDd: 4.7 cm RA long axis LVOT diam LVIDs: 3.4 cm LA A2 area: 16.9 cm : 2.2 cm FS: 29.0 % LA A4 area: 14.3 cm RA area EPSS: 0.61 cm LA length (vol): 5.2 cm IVSd: 1.0 cm LA vol: 39.4 ml : 12.4 cm LVPWd: 0.97 cm RA vol: 28.1 ml LA vol index: 22.3 ml/m2RA : 15.9 mm2 LV kapadia. diameter/BSA LV sys. diameter/BSA TAPSE: 2.4 cm (cm/m^2): 2.7 (cm/m^2): 1.9 Doppler Measurements & Calculations Ao V2 max MV E max kannan MV E/A: 0.89 TR max kannan : 148.2 cm/sec : 70.6 cm/sec Med Peak E' Kannan : 221.6 cm/sec Ao max P.8 mmHg MV A max kannan TR max PG Ao mean P.7 mmHg : 79.2 cm/sec E/E' med: 10.2 : 19.6 mmHg LVOT Max Kannan Lat Peak E' Kannan PA V2 max : 122.1 cm/sec : 69.0 cm/sec ESTEPHANIA(I,D): 3.3 cm E/E' lat: 6.2 PA mean PG sev ratio: 0.88 E/e' average: 8.2 : 1.1 mmHg MV dec time: 0.26 sec Ao V2 mean LV V1 max PG PA V2 mean : 100.1 cm/sec : 49.8 cm/sec Ao V2 VTI: 29.4 cmLV V1 VTI: 25.8 cm PA pr(Accel) : 4.5 mmHg ESTEPHANIA(V,D): 3.1 cm2 ESTEPHANIA indexed to BSA (cm^2/m^2): 1.9 Electronically signed by: Ismael Davis on Reading Physician:12/17/2016 11:44 AM
--- NOTE | 2016-12-17 12:44 | PCM.DIMED ---
Discharge Instructions Date of Service Dec 17, 2016 Dates of Hospitalization Dec 16, 2016 at 14:01 Discharge Diagnosis Discharge Diagnosis Right Arm Pain Diet Discharge Diet: Heart Healthy Activity Discharge Activity: No restrictions Call your provider Call your provider for: Fever or Chills, Shortness of breath, Bleeding, Chest pain, Vomitting, Excessive diarrhea, Weakness (unilateral) Patient Instructions Follow-up Provider: Raheel Fermin MD Follow-up with PCP in: 1 week Kain Castro MD Dec 17, 2016 12:43
--- NOTE | 2016-12-17 13:20 | NUR ---
Discharge Reviewed d/c instructions with pt including care notes, no new prescriptions. pt signed and given originals, copies to chart. IV d/c intact, tele removed. Pt VS stable at d/c, denies CP. All belongings packed by pt and taken with her, to drive home, pt walked off unit accompanied by .
--- NOTE | 2016-12-17 13:32 | NUR ---
Social Work: Discharge Data: Pt discharged home via POV today. No d/c planning needs. Assessment: Pt who is independent at baseline, capable of self care at this time. Plan: Pt discharged home via POV today. No d/c planning needs. EMELINA Johnson
--- NOTE | 2016-12-17 19:05 | DRSVH ---
PROCEDURE: ONE DAY TREADMILL STRESS TEST. Rest and exercise myocardial perfusion SPECT with gated i maging and ejection fraction RADIOPHARMACEUTICAL: 8.06 mCi Tc-99m tetrofosmin IV at rest and 27.1 mCi Tc-99m tetrofosmin IV at pe ak exercise. [id number] was performed. INDICATIONS: RIGHT ARM PAIN, POSSIBLE ANGINA AND ISCHEMIC HEART DISEASE. TECHNIQUE: Radiopharmaceutical was injected at peak stress test, and also at rest. SPECT images wer e obtained. SPECT myocardial perfusion images were displayed in short axis, horizontal long axis, an d vertical long axis views. Gated images were reviewed using Mesolight software. COMPARISON: None. CARDIAC STRESS: A standard Rj treadmill exercise tolerance test was performed by the patient unde r the supervision of attending staff. The patient exercised for 9 minutes and 49 seconds; functional aerobic impairment (HERACLIO) is -75%. Hemodynamic Data: There is normal blood pressure and heart rate response to exercise stress. The pa tient achieved 105% of maximum predicted heart rate at peak exercise. Symptoms: The patient denied chest pain during exercise. EKG: Baseline rhythm was sinus. Stress EKG did not reveal any obvious inducible ischemic changes. There were occasional PVCs. FINDINGS: Raw Data: There appeared to be adequate myocardial uptake. Left Ventricular Function: Stress LV ejection fraction is 89%. Resting LV end diastolic volume is 4 7 mL. I do not see any obvious wall motion abnormalities. On my visual inspection, there is no sign ificant transient ischemic dilatation. Myocardial Perfusion: There was normal myocardial perfusion. IMPRESSION: I will call this study a normal myocardial perfusion study. The patient has good exerci se tolerance. Left ventricular function is preserved. Overall this is a low risk myocardial perfusi on scan. Dictated by: Trice Berger M.D. on 12/17/2016 at 11:45 Transcribed by: VY on 12/17/2016 at 22:05 Approved by: Trice Berger M.D. on 12/18/2016 at 16:59
--- NOTE | 2016-12-18 00:19 | PCM.DC.MED ---
Discharge Summary Date of Service Dec 17, 2016 Dates of Hospitalization Date of Hospital Admission Dec 16, 2016 at 14:01 Date of Discharge: Dec 17, 2016 Providers: Admitting Physician: Kain Castro MD Primary Care Physician: Raheel Fermin MD Attending Physician: Kain Castro MD Diagnosis at Time of Discharge Diagnosis at Time of Discharge Right Arm Pain Procedures XRay, CTs & MRIs PROCEDURE: X-RAY CHEST, TWO VIEWS ([id number]) INDICATIONS: Arm pain TECHNIQUE: 2 views of the chest were acquired. COMPARISON: [facility], , CHEST 2VW, 07/20/2011, 21:51. FINDINGS: Surgical changes and devices: None. Lungs and pleura: No pleural effusions or pneumothorax. Lungs are clear. Mediastinum: Mediastinal contours are normal. Heart size is normal. Bones and chest wall: No suspicious bony abnormalities. Soft tissues appear unremarkable. IMPRESSION: No acute cardiopulmonary disease. Dictated by: Sanam Marks M.D. on 12/16/2016 at 11:44 Approved by: Sanam Marks M.D. on 12/16/2016 at 11:44 PROCEDURE: US VENOUS ARM DUPLEX UNILATERAL, RIGHT INDICATIONS: R arm deep ache TECHNIQUE: Real-time imaging, as well as color and pulse Doppler interrogation, was performed of the right upper extremity deep veins from the inferior neck to the antecubital fossa. COMPARISON: None. FINDINGS: The internal jugular vein, visualized portions of the subclavian vein , axillary, and brachial veins are free of intraluminal thrombus. Where physically possible, the veins are normally compressible. Color and pulse Doppler demonstrate normal intraluminal flow, with expected phasicity and pulsatility. Additional scanning of the cephalic and basilic veins of the superficial system demonstrate normal compressibility, without thrombus. IMPRESSION: No acute venous thrombosis in the right upper extremity. Dictated by: Sanam Marks M.D. on 12/16/2016 at 14:32 Approved by: Sanam Marks M.D. on 12/16/2016 at 14:32 Cardiac Echo Impression Echocardiogram Report Name: BUSTER JACKSON MStudy Date : 12/17/2016 Height: 64 in Hospital Exam Location: [facility] Weight: 158 lb Gender: Female BSA: 1.8 m2 : 1950 Age: 66 yrs BP: 103/63 mmHg Reason For Study: Right arm pain, possible ischemia Ordering Physician: RONI [facility] Performed By: Joselin Tse Referring Physician: Waqar Lopez Interpretation Summary There is normal left ventricular wall thickness. The ejection fraction is estimated to be 60-65%. There is no significant valvular heart disease. Brief History The patient is a very pleasant 66-year-old white female with history of diabetes mellitus, hypertension and gastroesophageal reflux disease on omeprazole who is currently being treated for plantar fasciitis of her right lower extremity. He also suffers from a Chadwick's cyst behind the left knee along with left knee torn meniscus. Patient takes a nightly Epsom salts bath. Patient was taking a bath last evening and when she was getting out of the tub she first drained the tub and then stood up without putting much weight on her leg with a plantar fasciitis and also has a Chadwick's cyst behind her left knee. Therefore, the patient was using her arm muscles to do most of the work and getting up out of the tub. The patient felt fine afterwards however she awoke at 2:00 in the morning with a sudden onset of deep throbbing and deep aching in her right arm. 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 Soon thereafter the pain alleviated some. However, patient decided to give herself an exercise stress test instead of going to the hospital as her is sick with multiple myeloma at home. Patient decided to do jumping jacks and running in place and stated that the pain in her right arm did not get worse. However, it did not get any better. Patient eventually went back to sleep and awoke this morning feeling "horrible" she went to do her hair in her right arm was aching deep inside she could not feel any muscle aches but the pain was deep inside her arm. Patient did not experience any chills or diaphoresis or shaking. Patient did not experience any nausea, or vomiting. Her insisted that she come to the hospital and drove her to the hospital at 10 AM. The patient was evaluated in the hospital by in the emergency room at [facility] by Dr. Vasu Roper. Dr. Roper did a cardiac workup which included an EKG which shows sinus rhythm with a rate of 67 and T waves inverted in lead 3. There is no previous EKG for comparison the patient had a troponin drawn which was normal at 0.010. On exam the patient had no gross limitation range of motion, no pain with movement, no pain to palpation, no swelling. The right upper extremity ultrasound was ordered to rule out formation of a DVT and this was negative. The patient had an HEAR T score of 5 making her moderate risk for acute cardiovascular event. By Well's criteria she is low risk for pulmonary embolism or DVT. Patient had significant risk factors for cardiac disease which include diabetes, hypertension obesity and family history of cerebrovascular disease. Patient was therefore brought in under observation to the hospitalist service for further workup. Hospital Course The patient is a very pleasant 66-year-old white female with history of diabetes mellitus, hypertension and gastroesophageal reflux disease on omeprazole who is currently being treated for plantar fasciitis of her right lower extremity. He also suffers from a Chadwick's cyst behind the left knee along with left knee torn meniscus. Patient takes a nightly ZendyPlaceom salts bath. Patient was taking a bath last evening and when she was getting out of the tub she first drained the tub and then stood up without putting much weight on her leg with a plantar fasciitis and also has a Chadwick's cyst behind her left knee. Therefore, the patient was using her arm muscles to do most of the work and getting up out of the tub. The patient felt fine afterwards however she awoke at 2:00 in the morning with a sudden onset of deep throbbing and deep aching in her right arm. 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 Soon thereafter the pain alleviated some. However, patient decided to give herself an exercise stress test instead of going to the hospital as her is sick with multiple myeloma at home. Patient decided to do jumping jacks and running in place and stated that the pain in her right arm did not get worse. However, it did not get any better. Patient eventually went back to sleep and awoke this morning feeling "horrible" she went to do her hair in her right arm was aching deep inside she could not feel any muscle aches but the pain was deep inside her arm. Patient did not experience any chills or diaphoresis or shaking. Patient did not experience any nausea, or vomiting. Her insisted that she come to the hospital and drove her to the hospital at 10 AM. The patient was evaluated in the hospital by in the emergency room at [facility] by Dr. Vasu Roper. Dr. Roper did a cardiac workup which included an EKG which shows sinus rhythm with a rate of 67 and T waves inverted in lead 3. There is no previous EKG for comparison the patient had a troponin drawn which was normal at 0.010. On exam the patient had no gross limitation range of motion, no pain with movement, no pain to palpation, no swelling. The right upper extremity ultrasound was ordered to rule out formation of a DVT and this was negative. The patient had an HEAR T score of 5 making her moderate risk for acute cardiovascular event. By Well's criteria she is low risk for pulmonary embolism or DVT. Patient had significant risk factors for cardiac disease which include diabetes, hypertension obesity and family history of cerebrovascular disease. Patient was therefore brought in under observation to the hospitalist service for further workup. # Right arm pain, present on admission. Active - Rule out acute coronary syndrome - Rule out other - Serial troponins were negative - Echocardiogram was unremarkable - As patient has plantar fasciitis on the right foot, a Chadwick's cyst behind the left knee, along with torn cartilage in the left knee, will order a nuclear medicine stress test for the patient in a.m. # Type II diabetes, present on admission. Active - Patient reports that this is well controlled on metformin. - We checked a hemoglobin [id number] is still pending - We checked blood sugars before meals and at bedtime and offer sliding scale insulin coverage - We placed the patient on a heart healthy consistent carbohydrate diet. # Hypertension, present on admission. Active - We will continue patient's atenolol 25 mg daily - We will continue triamterene/hydrochlorothiazide by mouth daily # Chadwick's cyst behind the left knee along with torn medial meniscus of the knee and left leg swelling. - Due to the above and plantar fasciitis or order nuclear medicine stress test or Lexiscan, rather than a treadmill stress test. Disposition: The stress test was negative and therefore, I suspect patient may have injured herself getting out of the tub and she will be discharged home. The patient and her are in agreement with this plan and she is very happy to be able to go home. Exam Vital Signs (Last) Date Time Temp Pulse Resp B/P Pulse Ox O2 Delivery O2 Flow Rate FiO2 12/17/16 10:18 36.6 74 16 119/66 96 Room Air Exam General: The patient is in no apparent distress HEENT: Head is atraumatic and normocephalic. Eyes: Pupils are equally round and reactive to light and accommodation. Extraocular muscles are intact. Sclera are white, anicteric. Subconjunctival mucosa is pink. Ears and nose are unremarkable. Oropharynx: There is no mucosal lesions, there is no thrush, there is no pharyngitis. Neck: Is supple, there are no nodes, or masses or tenderness. Chest: Is clear to auscultation and percussion. There are no rales, rhonchi, wheezes or rubs. Heart: Rate, rhythm is regular. There is no murmur, rub or gallop. Abdomen: Good bowel sounds are present. Abdomen is soft, nontender, no organomegaly or masses were appreciated. Extremities: There is a Chadwick's cyst behind the left knee with some posterior swelling and some edema of left lower extremity towards the ankle area. The left lower extremities is well perfused. There is no Homans sign. Neurologic: There are no focal neurological deficits. Cranial nerves II through XII are intact. There are no sensory or motor deficits. Psychiatric: Patients mood is calm and shows no sign of agitation. Genital: Deferred Rectal: Deferred Test 12/16/16 01:30 12/16/16 10:45 12/16/16 17:51 12/17/16 05:11 Hold Keller Top Tube Received (Received) Urine Color Yellow (YELLOW) Urine Appearance Clear (CLEAR,HAZY) Urine pH 5.5 (5.0-8.0) Urine Specific [place] 1.010 (1.003-1.035) Urine Protein Negativemg/dL (NEG,TRACE) Urine Glucose (UA) Negativemg/dL (NEGATIVE) Urine Ketones Negativemg/dL (NEGATIVE) Urine Occult Blood Negative (NEGATIVE) Urine Nitrite Negative (NEGATIVE) Urine Bilirubin Negative (NEGATIVE) Urine Urobilinogen Normalmg/dL (NORMAL) Urine Leukocyte Esterase Negative (NEGATIVE) Urine RBC 0-2/hpf (0-2) Urine WBC 0-5/hpf (0-5) Urine Epithelial Cells Occasional/hpf (NONE-MOD) Urine Crystals None seen (NONE SEEN) Urine Bacteria None/hpf (NONE-FEW) Urine Hyaline Casts None/lpf (NONE) Urine Granular Casts None seen (NONE SEEN) Urine Waxy Casts None seen (NONE SEEN) Urine Red Blood Cell Casts None seen (NONE SEEN) Urine White Blood Cell Casts None seen (NONE SEEN) Urine Mucus None seen (None Seen) Urine Trichomonas None seen (NONE SEEN) Urine Yeast None (NONE SEEN) Urinalysis Comment None Urine Culture Reflexed Not indicated White Blood Count 7.0th/mm3 (3.8-10.1) Red Blood Count 4.34mil/mm3 (3.90-5.20) Hemoglobin 13.2g/dL (12.0-15.6) Hematocrit 39.5% (35.0-46.0) Mean Corpuscular Volume 91.0fL (81-100) Mean Corpuscular Hemoglobin 30.4pg (27.0-35.0) Mean Corpuscular Hemoglobin Concent 33.4% (32.0-37.0) Red Cell Distribution Width 13.4% (12.3-15.4) Platelet Count 240bil/L (150-400) Neutrophils (%) (Auto) 60.8% (40-74) Lymphocytes (%) (Auto) 23.8% (14-46) Monocytes (%) (Auto) 13.3% (4-12) Eosinophils (%) (Auto) 1.7% (0-5) Basophils (%) (Auto) 0.3% (0-3) Sodium Level 140mEq/L (134-144) Potassium Level 3.8mEq/L (3.5-5.2) Chloride Level 102mEq/L (97-108) Carbon Dioxide Level 23mmol/L (18-29) Blood Urea Nitrogen 18mg/dL (8-27) Creatinine 0.82mg/dL (0.57-1.00) Estimat Glomerular Filtration Rate 99mL/min (>59) Glucose Level 94mg/dL (60-99) Calcium Level 9.7mg/dL (8.5-10.1) Magnesium Level 2.1mg/dL (1.6-2.6) Total Bilirubin 1.1mg/dL (0.0-1.2) Aspartate Amino Transf (AST/SGOT) 20U/L (0-50) Alanine Aminotransferase (ALT/SGPT) 20U/L (0-32) Alkaline Phosphatase 56U/L (25-165) Total Protein 7.0g/dL (6.4-8.4) Albumin 4.0g/dL (3.4-5.0) Triglycerides Level 147mg/dL (0-149) Cholesterol Level 223mg/dL (100-199) LDL Cholesterol, Calculated 137.600mg/dL (0-99) VLDL Cholesterol 29.400mg/dL HDL Cholesterol 56mg/dL (>39) Cholesterol/HDL Ratio 3.98 (0.0-4.4) Thyroid Stimulating Hormone (TSH) 3.230uIU/mL (0.450-4.500) Test 12/17/16 10:10 Troponin T < 0.010ug/L (0.0-0.011) Discharge Medications Discharge Medications Aspirin (Aspirin) 81 Mg Tablet 81 MG PO DAILY (Reported) Atenolol (Atenolol) 25 Mg Tablet 25 MG PO QAM (Reported) Cyclosporine (Restasis) 1 Each Droperette 1 DROP BOTH_EYES BID (Reported) Metformin (Metformin) 500 Mg Tablet 500 MG PO QAM (Reported) Omeprazole (Omeprazole) 20 Mg Tablet.dr 20 MG PO BID (Reported) Triamterene/HCTZ 37.5-25 mg (Triamterene/HCTZ 37.5-25 mg) 1 Each Capsule 0.5 CAPSULE PO DAILY (Reported) As needed Albuterol HFA (Proair HFA) 8.5 Gm Hfa.aer.ad 2 PUFFS INHALATION Q4H PRN PRN PRN (Reported) Benzonatate (Tessalon Perle) 100 Mg Capsule 100 MG PO TID PRN PRN For Cough ( Reported) Fluticasone Propionate (Flonase Allergy Relief) 50 Mcg/Actuation Cope.susp 1-2 SPRAYS NS DAILY PRN PRN For Congestion (Reported) Valacyclovir HCl (Valtrex) 500 Mg Tablet 500 MG PO BID PRN PRN PRN (Reported) X 3 DAYS Followup Plan Disposition: Patient is being discharged home with her . Discharge Diet: Heart Healthy Discharge Activity: No restrictions Follow-up Provider: Raheel Fermin MD Follow-up with PCP in: 1 week Time spent Time spent on discharging this patient was greater than 35 minutes, over half of which was involved in counseling and coordination of care. Kain Castro MD Dec 18, 2016 00:19
== END 2016-12-17 13:27 | disposition home or self-care (01) ==
LOC: SED 09:54 → MPC 14:01
PROVIDERS: ADMIT Internal Medicine Infectious Disease; ATTEND Internal Medicine Infectious Disease
DX: M79.601 Pain in right arm (principal); E11.9 Type 2 diabetes mellitus without complications; I10 Essential (primary) hypertension; M71.22 Synovial cyst of popliteal space [Baker], left knee; R06.09 Other forms of dyspnea; K21.9 Gastro-esophageal reflux disease without esophagitis; Z88.0 Allergy status to penicillin; Z88.8 Allergy status to other drugs, medicaments and biological substances; Z79.82 Long term (current) use of aspirin; Z79.84 Long term (current) use of oral hypoglycemic drugs
CPT/HCPCS: 36415; 71020; 78452; 80053; 80061; 81000; 83036; 83735; 84443; 84484; 85025; 93005; 93017; 93971; 99285; A9502; C8929; G0378; J1815